=== PATIENT | female | born 1955 | race Caucasian/White ===

== ENCOUNTER 2019-08-28 14:20 | Outpatient (REF) | payer MEDICAID, SELFPAY ==
[2019-08-28 19:25] LABS: Anion Gap 6.4 mmol/L (3-11); BUN 23 mg/dL (7-18); CO2 29.6 mmol/L (21.0-32.0); CREATININE 0.79 mg/dL (0.55-1.02); Calcium 9.2 mg/dL (8.5-10.1); Chloride 104 mmol/L (98-107); Glucose 94 mg/dL (74-106); Potassium 4.3 mmol/L (3.5-5.1); Sodium 140 mmol/L (136-145); TSH 2.42 uIU/mL (0.36-3.74); Vitamin B12 642 pg/mL (193-986)
== END 2019-08-28 14:40 ==
LOC: NCHCN 14:20
PROVIDERS: PCP Internal Medicine; Visit Provider Internal Medicine
DX: Z13.29 Encounter for screening for other suspected endocrine disorder (principal); Z13.228 Encounter for screening for other metabolic disorders; Z13.21 Encounter for screening for nutritional disorder
CPT/HCPCS: 80048; 82607; 84443

== ENCOUNTER 2020-09-02 19:42 | Outpatient (REF) | payer MEDICARE, MEDICAID, SELFPAY ==
[2020-09-02 21:12] LABS: Anion Gap 9.8 mmol/L (3-11); BUN 20 mg/dL (7-18); CO2 27.2 mmol/L (21.0-32.0); CREATININE 0.7 mg/dL (0.55-1.02); Chloride 106 mmol/L (98-107); Glucose 96 mg/dL (74-106); Potassium 4.1 mmol/L (3.5-5.1); Sodium 143 mmol/L (136-145)
== END 2020-09-02 19:43 | disposition home or self-care (01) ==
LOC: NCHCN 19:42
PROVIDERS: PCP Internal Medicine; Visit Provider Internal Medicine
DX: I10 Essential (primary) hypertension (principal)
CPT/HCPCS: 80048

== ENCOUNTER 2021-11-03 11:47 | Outpatient (REF) | payer MEDICARE, MEDICAID, SELFPAY ==
[2021-11-03 19:41] LABS: Anion Gap 7.9 mmol/L (3-11); BUN 19 mg/dL (7-18); CO2 31.1 mmol/L (21.0-32.0); CREATININE 0.8 mg/dL (0.55-1.02); Calculated LDL 123 mg/dL (<100); Chloride 104 mmol/L (98-107); Cholesterol 192 mg/dL (<200); Estimated GFR 81.21 (mL/min/1.73m2); Glucose 94 mg/dL (74-106); HDL Cholesterol 51 mg/dL (40-60); Sodium 143 mmol/L (136-145); TSH 2.53 uIU/mL (0.36-3.74); Triglyceride 90 mg/dL (<150)
== END 2021-11-03 11:48 | disposition home or self-care (01) ==
LOC: NCHCN 11:47
PROVIDERS: PCP Internal Medicine; Visit Provider Internal Medicine
DX: E04.1 Nontoxic single thyroid nodule (principal); R05.3 Chronic cough; M81.0 Age-related osteoporosis without current pathological fracture; I10 Essential (primary) hypertension
CPT/HCPCS: 80048; 80061; 84443

== ENCOUNTER 2022-03-10 10:52 | Outpatient (REF) | payer MEDICARE, SELFPAY ==
[2022-03-10 11:56] LABS: Abs Immature Grans 0.02 10^3/uL (0.0-0.06); Absolute Basophil Count 0.01 10^3/uL (0.0-0.2); Absolute Eosinophil Count 0.03 10^3/uL (0.0-0.7); Absolute Lymphocyte Count 1.39 10^3/uL (1.2-3.4); Absolute Monocyte Count 0.49 10^3/uL (0.1-0.8); Absolute Neutrophil Count 4.01 10^3/uL (1.2-6.7); Basophils % 0.2; Eosinophils % 0.5; HCT 43.1 % (36.0-46.0); Immature Grans % 0.3; Lymphocytes % 23.4; MCH 27.7 pg (27.0-33.0); MCHC 32.5 % (32.0-36.0); MCV 85 fL (80-95); MPV 9.6 fL (8.0-11.0); Monocytes % 8.2; Neutrophils % 67.4; Platelet Count 250 10^3/uL (130-400); RBC 5.05 10^6/uL (3.93-5.22); RDW 13.8 % (11.7-14.6); RDW-SD 42.8 fL; WBC 5.95 10^3/uL (4.4-10.8)
[2022-03-10 18:25] LABS: Rheumatoid Factor <8.6 IU/mL (<12.0)
[2022-03-11 09:23] LABS: Cyclic Citrullinated Peptide <2.5 U/mL (<5.0)
[2022-03-11 13:59] LABS: ANA Interpretation Negative (Negative)
== END 2022-03-10 10:53 | disposition home or self-care (01) ==
LOC: LBN 10:52
PROVIDERS: PCP Internal Medicine; Visit Provider Student in an Organized Health Care Education/Training Program
DX: J98.4 Other disorders of lung (principal); R06.09 Other forms of dyspnea; I10 Essential (primary) hypertension; M81.0 Age-related osteoporosis without current pathological fracture
CPT/HCPCS: 86200; 85025; 86038; 86431

== ENCOUNTER 2022-03-20 02:16 | Outpatient (CLI) | payer MEDICARE, SELFPAY ==
[2022-03-20] MEDS: Albuterol HFA 18 GM 200 PUFF INH IH (14:45)
[2022-03-20] MEDS: Inhaler, Assist Device 1 EACH MC (14:46)
--- NOTE | 2022-03-23 15:42 | PFT_ITS ---
Date of service: 03/20/22 Time of Service: 12:55 Pulmonary Function Test Result Requesting Provider Duchene Indications: Restrictive lung disease Interpretation Spirometry: There is no airflow limitation. There is a restrictive pattern to spirometry. There is no significant bronchodilator response. The MIP is normal. The MEP is reduced. Lung Volumes: There is moderate restriction. Diffusion Capacity: The diffusion is reduced. Airway Pressure: Normal airways resistance. Impression Moderate restriction with normal muscle pressures. Diffusion is reduced. This p attern is consistent with ILD. Clinical Correlation therefore is recommended.
== END 2022-03-20 02:17 | disposition home or self-care (01) ==
LOC: RT 02:16
PROVIDERS: PCP Internal Medicine; Visit Provider Student in an Organized Health Care Education/Training Program
DX: J98.4 Other disorders of lung (principal); R05.9 Cough, unspecified; R06.09 Other forms of dyspnea
CPT/HCPCS: 94060; 94726; 94729

== ENCOUNTER 2022-11-11 13:54 | Outpatient (REF) | payer MEDICARE, SELFPAY ==
[2022-11-11 20:58] LABS: Anion Gap 5.2 mmol/L (3-11); BUN 17 mg/dL (7-18); CO2 31.8 mmol/L (21.0-32.0); CREATININE 0.8 mg/dL (0.55-1.02); Calcium 9.2 mg/dL (8.5-10.1); Chloride 105 mmol/L (98-107); Estimated GFR 80.71 (mL/min/1.73m2); Glucose 93 mg/dL (74-106); Magnesium 1.8 mg/dL (1.8-2.4); Potassium 3.8 mmol/L (3.5-5.1); Sodium 142 mmol/L (136-145)
== END 2022-11-11 13:55 | disposition home or self-care (01) ==
LOC: NCHCN 13:54
PROVIDERS: PCP Internal Medicine; Visit Provider Internal Medicine
DX: I10 Essential (primary) hypertension (principal); R00.0 Tachycardia, unspecified
CPT/HCPCS: 80048; 83735

== ENCOUNTER → 2023-06-14 10:00 | Outpatient (BNVA) | payer MEDICARE, SELFPAY | PROVIDERS: PCP Internal Medicine; Referring Provider Internal Medicine; Visit Provider Student in an Organized Health Care Education/Training Program | DX: J98.4 Other disorders of lung (principal); M41.9 Scoliosis, unspecified; R06.09 Other forms of dyspnea; R91.1 Solitary pulmonary nodule | CPT/HCPCS: 99214 ==

== ENCOUNTER 2023-07-02 02:53 | Outpatient (CLI) | payer MEDICARE, SELFPAY ==
[2023-07-02] MEDS: Levalbuterol HFA 15 GM INH 4 PUFF IH (14:42)
[2023-07-02] MEDS: Inhaler, Assist Device 1 EACH MC (14:42)
--- NOTE | 2023-07-05 09:15 | W.PFT ---
Date of service: 07/02/23 Time of Service: 13:07 Pulmonary Function Test Result Indications: Restrictive lung disease Interpretation Spirometry: There is no airflow limitation. There is restrictive spirometry. No bronchodilator response. Lung Volumes: Moderate restrictive lung disease Diffusion Capacity: Decreased diffusion Airway Pressure: Normal airways resistance Impression Moderate restrictive lung disease Clinical Correlation therefore is recommended.
== END 2023-07-02 02:54 | disposition home or self-care (01) ==
PROVIDERS: PCP Internal Medicine; Visit Provider Student in an Organized Health Care Education/Training Program
DX: J98.4 Other disorders of lung (principal)
CPT/HCPCS: 94060; 94726; 94729

== ENCOUNTER 2023-11-15 16:38 | Outpatient (REF) | payer MEDICARE, SELFPAY ==
[2023-11-15 20:11] LABS: Anion Gap 7.9 mmol/L (3-11); BUN 20 mg/dL (7-18); CO2 28.1 mmol/L (21.0-32.0); CREATININE 0.8 mg/dL (0.55-1.02); Calcium 8.9 mg/dL (8.5-10.1); Chloride 106 mmol/L (98-107); Estimated GFR 80.21 (mL/min/1.73m2); Glucose 86 mg/dL (74-106); Potassium 3.4 mmol/L (3.5-5.1); Sodium 142 mmol/L (136-145)
== END 2023-11-15 16:39 | disposition home or self-care (01) ==
LOC: NCHCN 16:38
PROVIDERS: PCP Internal Medicine; Visit Provider Internal Medicine
DX: Z00.01 Encounter for general adult medical examination with abnormal findings (principal)
CPT/HCPCS: 80048; 83735

== ENCOUNTER → 2024-06-19 09:01 | Outpatient (BNVA) | payer MEDICARE, SELFPAY | PROVIDERS: PCP Internal Medicine; Referring Provider Internal Medicine; Visit Provider Physician Assistant Surgical | DX: J98.4 Other disorders of lung (principal); M41.9 Scoliosis, unspecified; R06.09 Other forms of dyspnea; R91.1 Solitary pulmonary nodule | CPT/HCPCS: 99214 ==